=== PATIENT | female | born 1995 | race Caucasian/White ===

== ENCOUNTER 2024-01-23 23:59 | Emergency (ER) | payer MEDICAID ==
[~2024-01-23] VITALS: Ht 165.1 cm; Wt 69.0 kg
[2024-01-24 00:03] VITALS: TEMP 98.2; O2SAT 96
[2024-01-24] MEDS: ONDANSETRON HCL 4MG/2ML INJ IM ONE (00:38)
[2024-01-24] MEDS ORDERED: ONDA4TAB50 MT (01:23)
[2024-01-24 01:39] VITALS: BP 110/66; PULSE 90; RESP 18; O2SAT 100
== END 2024-01-24 02:13 | disposition home or self-care (01) ==
LOC: ER 01-24 00:26
DX: T51.0X1A Toxic effect of ethanol, accidental (unintentional), initial encounter (principal); F10.129 Alcohol abuse with intoxication, unspecified; F19.90 Other psychoactive substance use, unspecified, uncomplicated; R11.2 Nausea with vomiting, unspecified; Y90.9 Presence of alcohol in blood, level not specified
CPT/HCPCS: 99283; 96372; J2405